=== PATIENT | male | born 1965 | race African-American/Black ===

== ENCOUNTER 2021-03-29 08:14 | Inpatient (IN) | payer BC ==
[2021-03-29] MEDS ORDERED: NITROGLYCERIN 25MG/D5W 250ML 25 MG/250 ML ML IVPB SCH (09:30)
[2021-03-29] MEDS ORDERED: NITROGLYCERIN 50MG/D5W 250ML 50 MG/250 ML ML IVPB SCH (09:45)
[2021-03-29 09:56] LABS: BASO % 1.2 % (0-2.0); HEMATOCRIT 37.4 % (35.4-49); HEMOGLOBIN 11.9 GM/dL (11.7-16.9); LYMPH % 17.1 % (8-40); MCH 24.5 pg (25.7-33.7); MCHC 31.7 g/dl (32.0-35.9); MEAN CELL VOLUME 77.3 fl (80-96); MEAN PLT VOLUME 9.1 fl (7.5-11.1); MONO % 6.7 % (3.8-10.2); PLATELET COUNT 375 10^3/uL (134-434); RBC 4.84 M/mm3 (4.00-5.60); RDW 18.4 % (11.9-15.9); WHITE BLOOD COUNT 10.1 K/mm3 (4.0-10.0)
[2021-03-29 10:13] LABS: ACTIVATED PTT 32.4 SECONDS (25.2-36.5); INR 1.28 (0.83-1.09); PROTHROMBIN TIME (PATIENT) 14.7 SEC (9.7-13.0)
[2021-03-29 10:24] LABS: CHLORIDE 107 mmol/L (98-107); SODIUM 138 mmol/L (136-145)
[2021-03-29 10:26] LABS: ALBUMIN 3.1 g/dl (3.4-5.0); ANION GAP 8 MMOL/L (8-16); CALCIUM 8.6 mg/dL (8.5-10.1); CO2 23 mmol/L (21-32); GLUCOSE,RANDOM 151 mg/dL (74-106)
[2021-03-29 10:27] LABS: BLOOD UREA NITROGEN 20.2 mg/dL (7-18)
[2021-03-29 10:29] LABS: SGPT/ALT 16 U/L (13-61)
[2021-03-29 10:30] LABS: CREATININE 1.7 mg/dL (0.55-1.3); SGOT/AST 31 U/L (15-37)
[2021-03-29 10:31] LABS: BILIRUBIN,TOTAL 0.7 mg/dL (0.2-1); TOT PROT 7.4 g/dl (6.4-8.2)
[2021-03-29 10:32] LABS: ALK PHOS 88 U/L (45-117)
[2021-03-29 10:35] LABS: N-TERMINAL BNP 4408.7 pg/ml (5-125)
[2021-03-29] MEDS ORDERED: FUROSEMIDE 40 MG/4 ML INJECTABLE VIAL IVPUSH ONE (11:07)
[2021-03-29] MEDS ORDERED: FUROSEMIDE 40 MG/4 ML INJECTABLE VIAL ONE (11:52)
[2021-03-29] MEDS ORDERED: AMIODARONE HCL 200 MG TABLET ONE (14:11)
[2021-03-29] MEDS: AMIODARONE HCL 200 MG TABLET PO SCH (14:17)
[2021-03-29 14:46] LABS: ALLENS TEST POSITIVE; ARTERIAL BLD GAS O2 SATURATION 98.2 % (95-98); ARTERIAL BLOOD GAS BASE EXCESS -0.4 mmol/L (-2-2); ARTERIAL BLOOD GAS PO2 106.2 mmHg (80-100); ARTERIAL BLOOD GAS pH 7.465 (7.350-7.450)
[2021-03-29 14:47] LABS: VENT MODE S/T; VENT RATE 10
[2021-03-29] MEDS ORDERED: metoPROLOL SUCCINATE 25 MG TAB.SR.24H (FP) PO ONE (15:09)
[2021-03-29 15:26] VITALS: BMI 32.9
[2021-03-29 20:25] LABS: EPI CELLS 1 /uL (0-25.1); HYALINE CASTS 0 /uL (0-3.1); URINE APPEARANCE CLEAR; URINE BACTERIA 1 /uL (0-1359); URINE BILIRUBIN NEGATIVE (NEGATIVE); URINE COLOR YELLOW; URINE GLUCOSE (UA) NEGATIVE (NEGATIVE); URINE KETONE NEGATIVE (NEGATIVE); URINE LEUK ESTERASE NEGATIVE (NEGATIVE); URINE NITRITE NEGATIVE (NEGATIVE); URINE PROTEIN 1+ (NEGATIVE); URINE RBC 3 /uL (0-23.9); URINE WBC 1 /uL (0-25.8)
[2021-03-29] MEDS: APIXABAN 5 MG TABLET PO SCH (21:15)
[2021-03-30 06:46] LABS: BASO % 0.2 % (0-2.0); EOS % 2.5 % (0-4.5); HEMATOCRIT 35.4 % (35.4-49); HEMOGLOBIN 10.9 GM/dL (11.7-16.9); LYMPH % 15.3 % (8-40); MCH 24.3 pg (25.7-33.7); MCHC 30.8 g/dl (32.0-35.9); MEAN CELL VOLUME 78.8 fl (80-96); MEAN PLT VOLUME 8.6 fl (7.5-11.1); MONO % 7.6 % (3.8-10.2); NEUT % 74.4 % (42.8-82.8); PLATELET COUNT 373 10^3/uL (134-434); RBC 4.49 M/mm3 (4.00-5.60); RDW 18.8 % (11.9-15.9); WHITE BLOOD COUNT 8.4 K/mm3 (4.0-10.0)
[2021-03-30 07:07] LABS: CALCIUM 8.6 mg/dL (8.5-10.1)
[2021-03-30 07:08] LABS: MAGNESIUM 2.1 mg/dL (1.8-2.4)
[2021-03-30 07:09] LABS: CREATININE 1.7 mg/dL (0.55-1.3)
[2021-03-30 07:10] LABS: ALBUMIN 2.9 g/dl (3.4-5.0); TOT PROT 6.5 g/dl (6.4-8.2)
[2021-03-30 07:13] LABS: PHOSPHOROUS 3.8 mg/dL (2.5-4.9)
[2021-03-30 07:15] LABS: BILIRUBIN,TOTAL 0.8 mg/dL (0.2-1)
[2021-03-30] MEDS: APIXABAN 5 MG TABLET PO SCH ×2 (09:19→21:02)
[2021-03-30] MEDS: AMIODARONE HCL 200 MG TABLET PO SCH (09:20)
[2021-03-30] MEDS ORDERED: FUROSEMIDE 40 MG/4 ML INJECTABLE VIAL IVPUSH SCH (10:00)
[2021-03-31 06:25] LABS: BASO % 0.8 % (0-2.0); EOS % 2.4 % (0-4.5); HEMATOCRIT 35.3 % (35.4-49); LYMPH % 15.9 % (8-40); MCH 24.4 pg (25.7-33.7); MCHC 31.3 g/dl (32.0-35.9); MEAN CELL VOLUME 77.9 fl (80-96); MONO % 5.7 % (3.8-10.2); NEUT % 75.2 % (42.8-82.8); PLATELET COUNT 358 10^3/uL (134-434); RBC 4.53 M/mm3 (4.00-5.60); RDW 18.6 % (11.9-15.9); WHITE BLOOD COUNT 8.6 K/mm3 (4.0-10.0)
[2021-03-31 06:26] LABS: CALCIUM 8.5 mg/dL (8.5-10.1)
[2021-03-31 06:27] LABS: BLOOD UREA NITROGEN 25.9 mg/dL (7-18)
[2021-03-31 06:30] LABS: CREATININE 1.7 mg/dL (0.55-1.3)
[2021-03-31] MEDS ORDERED: TORSEMIDE 10 MG TABLET PO SCH (10:00)
[2021-03-31] MEDS: FUROSEMIDE 40 MG/4 ML INJECTABLE VIAL IVPUSH SCH ×2 (10:17→13:28)
[2021-03-31] MEDS: APIXABAN 5 MG TABLET PO SCH ×2 (10:18→21:02)
[2021-03-31] MEDS: AMIODARONE HCL 200 MG TABLET PO SCH (10:18)
[2021-03-31] MEDS: POTASSIUM CHLORIDE TABS 20 MEQ TABLET.ER (FP) PO SCH (13:27)
[2021-04-01] MEDS: FUROSEMIDE 40 MG/4 ML INJECTABLE VIAL IVPUSH SCH ×2 (05:13→13:57)
[2021-04-01 08:21] LABS: BASO % 0.8 % (0-2.0); EOS % 2.1 % (0-4.5); HEMATOCRIT 35.6 % (35.4-49); HEMOGLOBIN 11.2 GM/dL (11.7-16.9); LYMPH % 13.5 % (8-40); MCH 24.8 pg (25.7-33.7); MCHC 31.6 g/dl (32.0-35.9); MEAN CELL VOLUME 78.5 fl (80-96); MEAN PLT VOLUME 8.9 fl (7.5-11.1); MONO % 5.7 % (3.8-10.2); NEUT % 77.9 % (42.8-82.8); PLATELET COUNT 368 10^3/uL (134-434); RBC 4.54 M/mm3 (4.00-5.60); RDW 18.8 % (11.9-15.9); WHITE BLOOD COUNT 8.6 K/mm3 (4.0-10.0)
[2021-04-01 08:39] LABS: ALBUMIN 3.1 g/dl (3.4-5.0); BLOOD UREA NITROGEN 23.6 mg/dL (7-18); CALCIUM 8.7 mg/dL (8.5-10.1)
[2021-04-01 08:42] LABS: CREATININE 1.8 mg/dL (0.55-1.3)
[2021-04-01 08:43] LABS: BILIRUBIN,TOTAL 0.9 mg/dL (0.2-1); TOT PROT 7.2 g/dl (6.4-8.2)
[2021-04-01] MEDS: POTASSIUM CHLORIDE TABS 20 MEQ TABLET.ER (FP) PO SCH (10:16)
[2021-04-01] MEDS: AMIODARONE HCL 200 MG TABLET PO SCH (10:17)
[2021-04-01] MEDS: APIXABAN 5 MG TABLET PO SCH ×2 (10:17→21:04)
[2021-04-02] MEDS: FUROSEMIDE 40 MG/4 ML INJECTABLE VIAL IVPUSH SCH (05:34)
[2021-04-02 07:31] LABS: CALCIUM 8.7 mg/dL (8.5-10.1)
[2021-04-02 07:32] LABS: MAGNESIUM 1.9 mg/dL (1.8-2.4)
[2021-04-02 07:35] LABS: CREATININE 1.8 mg/dL (0.55-1.3)
[2021-04-02] MEDS: APIXABAN 5 MG TABLET PO SCH (09:48)
[2021-04-02] MEDS: POTASSIUM CHLORIDE TABS 20 MEQ TABLET.ER (FP) PO SCH (09:48)
[2021-04-02] MEDS: AMIODARONE HCL 200 MG TABLET PO SCH (09:48)
[2021-04-02 10:30] VITALS: PULSE 84
[2021-04-02 11:30] VITALS: BP 122/76; TEMP 98.5
[2021-04-03] MEDS ORDERED: TORSEMIDE 10 MG TABLET PO SCH (10:00)
== END 2021-04-02 15:29 | disposition home or self-care (01) | DRG 291 ==
LOC: JER 08:14 → JERBED 12:00 → J4W 14:40
PROVIDERS: ADMIT Internal Medicine
DX: I11.0 Hypertensive heart disease with heart failure (principal); I50.23 Acute on chronic systolic (congestive) heart failure; J96.01 Acute respiratory failure with hypoxia; I16.1 Hypertensive emergency; N17.9 Acute kidney failure, unspecified; E66.9 Obesity, unspecified; Z68.32 Body mass index [BMI] 32.0-32.9, adult; I48.0 Paroxysmal atrial fibrillation
CPT/HCPCS: 36415; 36600; 71045-TC-FY; 76775-TC; 80048; 80053; 80061; 81003; 82550; 82803; 83036; 83735; 83880; 84100; 84443; 84484; 85025; 85610; 85730; 86850; 86900; 86901; 87804; 93005; 93010; 93306-TC; 94010; 94660; 94761; 99291; C9803; U0003; U0005

== ENCOUNTER 2021-05-05 07:15 | Inpatient (IN) | payer BC ==
[2021-05-05 07:28] VITALS: BMI 33.0
[2021-05-05] MEDS ORDERED: NITROGLYCERIN 25MG/D5W 250ML 25 MG/250 ML ML IVPB SCH ×2 (07:45→08:30)
[2021-05-05] MEDS ORDERED: FUROSEMIDE 40 MG/4 ML INJECTABLE VIAL IVPUSH ONE ×2 (07:53→10:13)
[2021-05-05] MEDS ORDERED: FUROSEMIDE 40 MG/4 ML INJECTABLE VIAL ONE ×3 (08:07→14:09)
[2021-05-05 08:09] LABS: VENOUS BASE EXCESS 2.2 mmol/L (-2-2); VENOUS O2 SATURATION 27.4 % (70-80); VENOUS PCO2 45.3 mmHg (38-52); VENOUS PH 7.4 (7.310-7.410)
[2021-05-05 08:15] LABS: BASO % 1.2 % (0-2.0); EOS % 1.3 % (0-4.5); HEMATOCRIT 34.7 % (35.4-49); HEMOGLOBIN 11.3 GM/dL (11.7-16.9); LYMPH % 13.6 % (8-40); MCH 25.3 pg (25.7-33.7); MCHC 32.5 g/dl (32.0-35.9); MEAN CELL VOLUME 77.8 fl (80-96); MEAN PLT VOLUME 8.7 fl (7.5-11.1); MONO % 6.4 % (3.8-10.2); NEUT % 77.5 % (42.8-82.8); PLATELET COUNT 261 10^3/uL (134-434); RBC 4.46 M/mm3 (4.00-5.60); RDW 18.6 % (11.9-15.9); WHITE BLOOD COUNT 7.8 K/mm3 (4.0-10.0)
[2021-05-05 08:49] LABS: CHLORIDE 108 mmol/L (98-107); SODIUM 142 mmol/L (136-145)
[2021-05-05 08:53] LABS: CALCIUM 9.3 mg/dL (8.5-10.1)
[2021-05-05 08:54] LABS: ALBUMIN 3.7 g/dl (3.4-5.0); ANION GAP 7 MMOL/L (8-16); BLOOD UREA NITROGEN 21.1 mg/dL (7-18); CO2 27 mmol/L (21-32); GLUCOSE,RANDOM 179 mg/dL (74-106); MAGNESIUM 2.3 mg/dL (1.8-2.4)
[2021-05-05 08:57] LABS: CREATININE 1.8 mg/dL (0.55-1.3); PHOSPHOROUS 3.6 mg/dL (2.5-4.9); SGOT/AST 12 U/L (15-37); SGPT/ALT 24 U/L (13-61)
[2021-05-05 08:58] LABS: TOT PROT 7.2 g/dl (6.4-8.2)
[2021-05-05 08:59] LABS: BILIRUBIN,TOTAL 0.9 mg/dL (0.2-1)
[2021-05-05 09:00] LABS: ALK PHOS 81 U/L (45-117)
[2021-05-05] MEDS ORDERED: NITROGLYCERIN 25MG/D5W 250ML 25 MG/250 ML ML IVPB ONE (09:00)
[2021-05-05] MEDS ORDERED: HEPARIN NA (PORCINE) 5,000 UNITS/ML 1ML VIAL SQ SCH (14:00)
[2021-05-05] MEDS: FUROSEMIDE 40 MG/4 ML INJECTABLE VIAL IVPUSH SCH (14:12)
[2021-05-05 14:34] LABS: URINE APPEARANCE CLEAR; URINE BILIRUBIN NEGATIVE (NEGATIVE); URINE COLOR YELLOW; URINE GLUCOSE (UA) NEGATIVE (NEGATIVE); URINE KETONE NEGATIVE (NEGATIVE); URINE LEUK ESTERASE NEGATIVE (NEGATIVE); URINE NITRITE NEGATIVE (NEGATIVE); URINE PROTEIN NEGATIVE (NEGATIVE); URINE UROBILINOGEN 0.2 mg/dL (0.2-1.0)
[2021-05-05] MEDS: APIXABAN 5 MG TABLET PO SCH (22:21)
[2021-05-05] MEDS: AMIODARONE HCL 200 MG TABLET PO SCH (22:21)
[2021-05-05] MEDS: SACUBITRIL/VALSARTAN 24 MG-26 MG TABLET PO SCH (23:33)
[2021-05-06] MEDS: FUROSEMIDE 40 MG/4 ML INJECTABLE VIAL IVPUSH SCH ×2 (06:28→14:31)
[2021-05-06 07:26] LABS: BASO % 1.2 % (0-2.0); HEMATOCRIT 34.1 % (35.4-49); HEMOGLOBIN 11.1 GM/dL (11.7-16.9); LYMPH % 21.5 % (8-40); MCH 25.6 pg (25.7-33.7); MCHC 32.7 g/dl (32.0-35.9); MEAN CELL VOLUME 78.3 fl (80-96); MEAN PLT VOLUME 8.9 fl (7.5-11.1); MONO % 8.5 % (3.8-10.2); NEUT % 65.8 % (42.8-82.8); PLATELET COUNT 241 10^3/uL (134-434); RBC 4.36 M/mm3 (4.00-5.60); RDW 18.5 % (11.9-15.9); WHITE BLOOD COUNT 6.2 K/mm3 (4.0-10.0)
[2021-05-06 07:46] LABS: ALBUMIN 3.2 g/dl (3.4-5.0); CALCIUM 8.5 mg/dL (8.5-10.1)
[2021-05-06 07:47] LABS: BLOOD UREA NITROGEN 20.4 mg/dL (7-18)
[2021-05-06 07:49] LABS: CREATININE 1.9 mg/dL (0.55-1.3)
[2021-05-06 07:51] LABS: BILIRUBIN,TOTAL 0.8 mg/dL (0.2-1); TOT PROT 6.7 g/dl (6.4-8.2)
[2021-05-06] MEDS: APIXABAN 5 MG TABLET PO SCH ×2 (09:21→21:15)
[2021-05-06] MEDS: AMIODARONE HCL 200 MG TABLET PO SCH ×2 (09:21→21:15)
[2021-05-06] MEDS: SACUBITRIL/VALSARTAN 24 MG-26 MG TABLET PO SCH ×2 (09:22→21:16)
[2021-05-06 19:11] LABS: SARS-CoV-2 NAA Not Detected (Not Detected)
[2021-05-07] MEDS: FUROSEMIDE 40 MG/4 ML INJECTABLE VIAL IVPUSH SCH ×2 (06:03→13:57)
[2021-05-07 08:15] LABS: BASO % 1.2 % (0-2.0); EOS % 3.9 % (0-4.5); HEMATOCRIT 36.1 % (35.4-49); HEMOGLOBIN 11.5 GM/dL (11.7-16.9); LYMPH % 27.1 % (8-40); MCH 24.9 pg (25.7-33.7); MCHC 31.9 g/dl (32.0-35.9); MEAN CELL VOLUME 77.8 fl (80-96); MONO % 7.8 % (3.8-10.2); PLATELET COUNT 267 10^3/uL (134-434); RBC 4.64 M/mm3 (4.00-5.60); RDW 18.5 % (11.9-15.9); WHITE BLOOD COUNT 6.2 K/mm3 (4.0-10.0)
[2021-05-07 08:22] LABS: CALCIUM 8.5 mg/dL (8.5-10.1)
[2021-05-07 08:23] LABS: BLOOD UREA NITROGEN 22.1 mg/dL (7-18); MAGNESIUM 2.1 mg/dL (1.8-2.4)
[2021-05-07 08:26] LABS: CREATININE 1.8 mg/dL (0.55-1.3)
[2021-05-07] MEDS: AMIODARONE HCL 200 MG TABLET PO SCH (10:13)
[2021-05-07] MEDS: APIXABAN 5 MG TABLET PO SCH (10:13)
[2021-05-07] MEDS: SACUBITRIL/VALSARTAN 24 MG-26 MG TABLET PO SCH (10:14)
[2021-05-07] MEDS ORDERED: POTASSIUM CHLORIDE TABS 20 MEQ TABLET.ER (FP) PO SCH (10:15)
[2021-05-07 13:56] VITALS: BP 136/80; PULSE 74; TEMP 98.2
== END 2021-05-07 16:44 | disposition home or self-care (01) | DRG 291 ==
LOC: JER 07:15 → JERBED 07:58 → J4W 21:57
PROVIDERS: ATTEND Internal Medicine
DX: I13.0 Hypertensive heart and chronic kidney disease with heart failure and stage 1 through stage 4 chronic kidney disease, or unspecified chronic kidney disease (principal); I50.23 Acute on chronic systolic (congestive) heart failure; J96.01 Acute respiratory failure with hypoxia; N17.9 Acute kidney failure, unspecified; Z68.33 Body mass index [BMI] 33.0-33.9, adult; N18.9 Chronic kidney disease, unspecified; I48.0 Paroxysmal atrial fibrillation; I34.0 Nonrheumatic mitral (valve) insufficiency; E66.9 Obesity, unspecified
CPT/HCPCS: 36415; 71045-TC-FY; 80048; 80053; 81003; 82570; 82803; 83735; 83880; 84100; 84156; 84443; 84484; 85025; 86850; 86900; 86901; 93005; 93010; 94660; 99285-25; C9803; U0003; U0005

== ENCOUNTER 2022-03-19 20:06 | Inpatient (IN) | payer BC, OTHER ==
[2022-03-19] MEDS ORDERED: LACTATED RINGERS SOLUTION 1000 ML INFUS.BAG IV ONE (20:54)
[2022-03-19] MEDS ORDERED: ONDANSETRON 4 MG/2 ML VIAL IVPUSH ONE (20:54)
[2022-03-19] MEDS ORDERED: ACETAMINOPHEN 1000 MG/100 ML BAG IVPB ONE (20:54)
[2022-03-19] MEDS ORDERED: ACETAMINOPHEN INJECTION 100 ML IVPB ONE (21:03)
[2022-03-19] MEDS ORDERED: ONDANSETRON 4 MG/2 ML VIAL ONE (21:04)
[2022-03-19] MEDS ORDERED: FAMOTIDINE 20 MG/50 ML IVPB 20 MG/50 ML MG IVPB ONE ×2 (21:09→21:12)
[2022-03-19] MEDS ORDERED: SUCRALFATE 1 GM TABLET (FP) PO ONE (21:09)
[2022-03-19] MEDS ORDERED: MAG HYDROX/AL HYDROX/SIMETH -MYLANTA- ORAL SUSPENSION PO ONE (21:09)
[2022-03-19] MEDS ORDERED: SUCRALFATE 1 GM TABLET (FP) ONE (21:12)
[2022-03-19] MEDS ORDERED: MAG HYDROX/AL HYDROX/SIMETH 30 ML UNIT-DOSE CUP ONE (21:12)
[2022-03-19 21:27] LABS: BASO % 1.2 % (0-2.0); EOS % 0.2 % (0-4.5); HEMATOCRIT 56.7 % (35.4-49); HEMOGLOBIN 18.1 GM/dL (11.7-16.9); LYMPH % 6.4 % (8-40); MCH 28.8 pg (25.7-33.7); MCHC 31.8 g/dl (32.0-35.9); MEAN CELL VOLUME 90.4 fl (80-96); MEAN PLT VOLUME 9.8 fl (7.5-11.1); MONO % 5.5 % (3.8-10.2); NEUT % 86.7 % (42.8-82.8); PLATELET COUNT 311 10^3/uL (134-434); RBC 6.27 M/mm3 (4.00-5.60); RDW 15.3 % (11.9-15.9); WHITE BLOOD COUNT 8.1 K/mm3 (4.0-10.0)
[2022-03-19 21:47] LABS: CHLORIDE 81 mmol/L (98-107); SODIUM 123 mmol/L (136-145)
[2022-03-19 21:49] LABS: ALBUMIN 3.6 g/dl (3.4-5.0); ANION GAP 23 MMOL/L (8-16); CALCIUM 9.4 mg/dL (8.5-10.1); CO2 19 mmol/L (21-32)
[2022-03-19 21:50] LABS: LIPASE 1006 U/L (73-393)
[2022-03-19 21:53] LABS: CREATININE 3.4 mg/dL (0.55-1.3); SGOT/AST 13 U/L (15-37); SGPT/ALT 28 U/L (13-61)
[2022-03-19 21:54] LABS: BILIRUBIN,TOTAL 0.5 mg/dL (0.2-1); TOT PROT 7.8 g/dl (6.4-8.2)
[2022-03-19 21:55] LABS: ALK PHOS 119 U/L (45-117)
[2022-03-19 21:57] LABS: N-TERMINAL BNP 1514.2 pg/ml (5-125)
[2022-03-19 21:58] LABS: GLUCOSE,RANDOM 1261 mg/dL (74-106)
[2022-03-19] MEDS ORDERED: SODIUM CHLORIDE 0.9% 500 ML INFUS.BAG IV ONE ×2 (22:20→23:52)
[2022-03-19] MEDS ORDERED: HYDROmorphone HCL CARPU-JECT 2 MG/1 ML DISP.SYRIN IVPUSH ONE ×2 (22:23→23:42)
[2022-03-19] MEDS ORDERED: CALCIUM GLUCONATE 10% - 1,000 MG/10 ML VIAL IVPB ONE (22:25)
[2022-03-19] MEDS ORDERED: INSULIN REGULAR HUMAN 100 UNITS/ML *VIAL IVPUSH ONE (22:25)
[2022-03-19] MEDS ORDERED: INSULIN REGULAR 100 UNITS in SODIUM CHLORIDE 99 ML IVPB SCH (22:30)
[2022-03-19 22:36] LABS: INR 1.03 (0.83-1.09); PROTHROMBIN TIME (PATIENT) 11.9 SEC (9.7-13.0)
[2022-03-19 22:38] LABS: ACTIVATED PTT 25.1 SECONDS (25.2-36.5)
[2022-03-19] MEDS ORDERED: HYDROmorphone HCl 2 MG/ML VIAL ONE (22:38)
[2022-03-19] MEDS ORDERED: INSULIN REGULAR HUMAN 100 UNITS/ML *VIAL ONE (22:42)
[2022-03-19] MEDS ORDERED: CALCIUM GLUC IN NACL, ISO-OSM 1 GM/50 ML BAG IVPB ONE (22:42)
[2022-03-19 22:45] LABS: TRIGLYCERIDES 406 mg/dL (0-150)
[2022-03-19 22:46] LABS: VENOUS BASE EXCESS -6.9 mmol/L (-2-2); VENOUS O2 SATURATION 63.7 % (70-80); VENOUS PCO2 38.7 mmHg (38-52); VENOUS PH 7.304 (7.310-7.410)
[2022-03-19 22:47] LABS: URINE APPEARANCE CLEAR; URINE BILIRUBIN NEGATIVE (NEGATIVE); URINE COLOR YELLOW; URINE GLUCOSE (UA) 3+ (NEGATIVE); URINE KETONE TRACE (NEGATIVE); URINE LEUK ESTERASE NEGATIVE (NEGATIVE); URINE NITRITE NEGATIVE (NEGATIVE); URINE PROTEIN NEGATIVE (NEGATIVE); URINE UROBILINOGEN 0.2 mg/dL (0.2-1.0)
[2022-03-19] MEDS ORDERED: CALCIUM GLUCONATE 10% - 1,000 MG/10 ML VIAL ONE (22:51)
[2022-03-19 23:48] LABS: LACTIC ACID 4.6 mmol/L (0.4-2.0)
[2022-03-20 01:48] LABS: CHLORIDE 86 mmol/L (98-107); SODIUM 128 mmol/L (136-145)
[2022-03-20 01:50] LABS: BLOOD UREA NITROGEN 47.7 mg/dL (7-18); CALCIUM 9.5 mg/dL (8.5-10.1); CO2 22 mmol/L (21-32)
[2022-03-20 01:55] LABS: LACTIC ACID 3.4 mmol/L (0.4-2.0)
[2022-03-20 02:00] LABS: ANION GAP 20 MMOL/L (8-16); GLUCOSE,RANDOM 1073 mg/dL (74-106)
[2022-03-20] MEDS ORDERED: LACTATED RINGERS SOLUTION 1,000 ML/1,000 ML INFUS.BAG IV SCH ×2 (03:30→13:27)
[2022-03-20] MEDS: HYDROmorphone HCl 2 MG/ML VIAL IVPUSH PRN ×5 (04:39→20:10)
[2022-03-20] MEDS: ONDANSETRON 4 MG/2 ML VIAL IVPUSH PRN (06:45)
[2022-03-20 07:31] LABS: HEMATOCRIT 51.2 % (35.4-49); HEMOGLOBIN 16.9 GM/dL (11.7-16.9); MCH 28.6 pg (25.7-33.7); MEAN CELL VOLUME 86.8 fl (80-96); MEAN PLT VOLUME 9.9 fl (7.5-11.1); PLATELET COUNT 287 10^3/uL (134-434); RBC 5.89 M/mm3 (4.00-5.60); RDW 15.3 % (11.9-15.9)
[2022-03-20 07:58] LABS: CHLORIDE 100 mmol/L (98-107); SODIUM 139 mmol/L (136-145)
[2022-03-20 08:06] LABS: ANION GAP 15 MMOL/L (8-16); CALCIUM 9.4 mg/dL (8.5-10.1); CO2 23 mmol/L (21-32); MAGNESIUM 3.1 mg/dL (1.8-2.4)
[2022-03-20 08:07] LABS: ALBUMIN 3.5 g/dl (3.4-5.0)
[2022-03-20 08:09] LABS: CREATININE 2.8 mg/dL (0.55-1.3); PHOSPHOROUS 5.5 mg/dL (2.5-4.9); SGPT/ALT 27 U/L (13-61)
[2022-03-20 08:10] LABS: SGOT/AST 12 U/L (15-37)
[2022-03-20 08:11] LABS: BILIRUBIN,TOTAL 0.3 mg/dL (0.2-1); TOT PROT 7.2 g/dl (6.4-8.2)
[2022-03-20 08:12] LABS: ALK PHOS 105 U/L (45-117)
[2022-03-20 08:22] LABS: GLUCOSE,RANDOM 477 mg/dL (74-106)
[2022-03-20] MEDS: PANTOPRAZOLE SODIUM 40 MG VIAL IVPUSH SCH (10:08)
[2022-03-20 12:26] LABS: LIPASE 4960 U/L (73-393)
[2022-03-20] MEDS ORDERED: LACTATED RINGERS SOLUTION 1,000 ML with POTASSIUM CHLORIDE 20 MEQ IV ONE ×2 (12:31→12:32)
[2022-03-20] MEDS: KCL 10 MEQ IVPB 10 MEQ/100 ML INFUS.BAG IVPB SCH ×3 (13:12→15:21)
[2022-03-20] MEDS ORDERED: INSULIN (LEVEMIR) 100 UNITS/ML UNITS SQ ONE (13:25)
[2022-03-20] MEDS: HEPARIN NA (PORCINE) 5,000 UNITS/ML 1ML VIAL SQ SCH ×2 (13:32→21:50)
[2022-03-20 13:55] LABS: CALCIUM 9.8 mg/dL (8.5-10.1)
[2022-03-20 13:56] LABS: ALBUMIN 3.4 g/dl (3.4-5.0)
[2022-03-20 13:59] LABS: CREATININE 2.6 mg/dL (0.55-1.3)
[2022-03-20 14:00] LABS: BILIRUBIN,TOTAL 0.3 mg/dL (0.2-1); TOT PROT 7.1 g/dl (6.4-8.2)
[2022-03-20 15:42] LABS: CALCIUM 9.1 mg/dL (8.5-10.1)
[2022-03-20 15:43] LABS: BLOOD UREA NITROGEN 42.2 mg/dL (7-18)
[2022-03-20 15:46] LABS: CREATININE 2.4 mg/dL (0.55-1.3)
[2022-03-20] MEDS: INSULIN SLIDING SCALE (NOVOLOG) 1 VIAL SQ SCH (16:12)
[2022-03-20] MEDS ORDERED: INSULIN SLIDING SCALE (NOVOLOG) 1 VIAL SQ SCH (16:30)
[2022-03-20] MEDS: AMIODARONE HCL 200 MG TABLET PO SCH ×2 (21:51→22:12)
[2022-03-20] MEDS ORDERED: INSULIN (LEVEMIR) 100 UNITS/ML UNITS SQ SCH (22:00)
[2022-03-21] MEDS: ONDANSETRON 4 MG/2 ML VIAL IVPUSH PRN (01:10)
[2022-03-21] MEDS: HYDROmorphone HCl 2 MG/ML VIAL IVPUSH PRN ×4 (01:10→22:50)
[2022-03-21] MEDS: INSULIN SLIDING SCALE (NOVOLOG) 1 VIAL SQ SCH ×2 (06:32→10:52)
[2022-03-21] MEDS: HEPARIN NA (PORCINE) 5,000 UNITS/ML 1ML VIAL SQ SCH ×3 (06:32→21:16)
[2022-03-21 07:08] LABS: ARTERIAL BLD GAS O2 SATURATION 96.6 % (95-98); ARTERIAL BLOOD GAS BASE EXCESS -6.4 mmol/L (-2-2); ARTERIAL BLOOD GAS pH 7.322 (7.350-7.450)
[2022-03-21 07:13] LABS: MCH 28.4 pg (25.7-33.7); MCHC 32.1 g/dl (32.0-35.9); MEAN CELL VOLUME 88.7 fl (80-96); MEAN PLT VOLUME 8.8 fl (7.5-11.1); PLATELET COUNT 130 10^3/uL (134-434); RBC 6.31 M/mm3 (4.00-5.60); RDW 15.4 % (11.9-15.9); WHITE BLOOD COUNT 12.4 K/mm3 (4.0-10.0)
[2022-03-21] MEDS: INSULIN (LEVEMIR) 100 UNITS/ML UNITS SQ SCH ×2 (07:24→10:54)
[2022-03-21 07:32] LABS: CHLORIDE 102 mmol/L (98-107); SODIUM 140 mmol/L (136-145)
[2022-03-21 07:34] LABS: CO2 23 mmol/L (21-32)
[2022-03-21 07:35] LABS: ALBUMIN 3.2 g/dl (3.4-5.0); BLOOD UREA NITROGEN 50.4 mg/dL (7-18); CALCIUM 8.8 mg/dL (8.5-10.1)
[2022-03-21 07:37] LABS: SGPT/ALT 26 U/L (13-61)
[2022-03-21 07:38] LABS: CREATININE 2.9 mg/dL (0.55-1.3); SGOT/AST 21 U/L (15-37)
[2022-03-21 07:39] LABS: PHOSPHOROUS 5.3 mg/dL (2.5-4.9); TOT PROT 6.8 g/dl (6.4-8.2); TRIGLYCERIDES 261 mg/dL (0-150)
[2022-03-21 07:40] LABS: BILIRUBIN,TOTAL 0.7 mg/dL (0.2-1)
[2022-03-21 07:41] LABS: LACTIC ACID 2.6 mmol/L (0.4-2.0)
[2022-03-21 07:42] LABS: ALK PHOS 100 U/L (45-117)
[2022-03-21 07:54] LABS: ANION GAP 16 MMOL/L (8-16); GLUCOSE,RANDOM 438 mg/dL (74-106); LIPASE 5653 U/L (73-393)
[2022-03-21] MEDS ORDERED: SODIUM ZIRCONIUM CYCLOSILICATE (LOKELMA) 5 GM PACKET PO ONE (08:02)
[2022-03-21] MEDS: PANTOPRAZOLE SODIUM 40 MG VIAL IVPUSH SCH (09:10)
[2022-03-21 09:12] LABS: ANISOCYTOSIS 3+; MACROCYTOSIS 0; OVALOCYTE 1+; TEAR DROP CELLS 1+
[2022-03-21] MEDS ORDERED: ALBUTEROL SO4 0.5 % INH SOLN 2.5 MG/0.5 ML VIAL.NEB. NEB ONE (10:03)
[2022-03-21] MEDS ORDERED: CALCIUM GLUCONATE 10% - 1,000 MG/10 ML VIAL IVPB ONE (10:04)
[2022-03-21] MEDS ORDERED: INSULIN REGULAR HUMAN 100 UNITS/ML *VIAL IVPUSH ONE (10:28)
[2022-03-21] MEDS ORDERED: DEXTROSE 50%-WATER - 25 GM/50 ML VIAL IVPUSH ONE (10:28)
[2022-03-21] MEDS ORDERED: SODIUM BICARBONATE 8.4% 50 MEQ/50 ML VIAL IVPUSH ONE (10:45)
[2022-03-21] MEDS ORDERED: SODIUM BICARBONATE 8.4% 50 MEQ/50 ML VIAL ONE (11:05)
[2022-03-21] MEDS ORDERED: SODIUM CHLORIDE 1,000 ML IV SCH (11:45)
[2022-03-21 12:25] LABS: BLOOD UREA NITROGEN 52.6 mg/dL (7-18)
[2022-03-21] MEDS ORDERED: INSULIN (NOVOLOG) ASPART 100 UNITS/ML 10ML VIAL SQ ONE ×2 (13:00→14:22)
[2022-03-21] MEDS ORDERED: INSULIN REGULAR 100 UNITS in SODIUM CHLORIDE 99 ML IVPB SCH (15:00)
[2022-03-21] MEDS ORDERED: SODIUM CHLORIDE 0.45% 1,000 ML IV SCH ×2 (15:15→17:15)
[2022-03-21 19:11] LABS: CALCIUM 8.7 mg/dL (8.5-10.1)
[2022-03-21 19:14] LABS: CREATININE 2.8 mg/dL (0.55-1.3)
[2022-03-22 01:13] LABS: CALCIUM 8.3 mg/dL (8.5-10.1)
[2022-03-22 01:14] LABS: BLOOD UREA NITROGEN 52.9 mg/dL (7-18); MAGNESIUM 3.1 mg/dL (1.8-2.4)
[2022-03-22 01:18] LABS: CREATININE 2.8 mg/dL (0.55-1.3)
[2022-03-22] MEDS: HEPARIN NA (PORCINE) 5,000 UNITS/ML 1ML VIAL SQ SCH ×3 (06:03→21:21)
[2022-03-22 07:26] LABS: HEMATOCRIT 51.9 % (35.4-49); HEMOGLOBIN 17.1 GM/dL (11.7-16.9); MCH 29.2 pg (25.7-33.7); MCHC 32.8 g/dl (32.0-35.9); MEAN CELL VOLUME 88.8 fl (80-96); MEAN PLT VOLUME 9.7 fl (7.5-11.1); PLATELET COUNT 116 10^3/uL (134-434); RBC 5.85 M/mm3 (4.00-5.60); RDW 15.6 % (11.9-15.9); WHITE BLOOD COUNT 9.5 K/mm3 (4.0-10.0)
[2022-03-22 07:49] LABS: CALCIUM 8.3 mg/dL (8.5-10.1)
[2022-03-22 07:50] LABS: BLOOD UREA NITROGEN 50.4 mg/dL (7-18)
[2022-03-22 07:52] LABS: CREATININE 2.9 mg/dL (0.55-1.3)
[2022-03-22 07:53] LABS: BILIRUBIN,TOTAL 0.8 mg/dL (0.2-1)
[2022-03-22 07:54] LABS: TOT PROT 6.3 g/dl (6.4-8.2)
[2022-03-22 08:00] LABS: LACTIC ACID 2.3 mmol/L (0.4-2.0)
[2022-03-22 08:01] LABS: ALBUMIN 2.6 g/dl (3.4-5.0)
[2022-03-22] MEDS ORDERED: DEXTROSE 5%-0.45% SALINE 1,000 ML IV SCH (08:15)
[2022-03-22] MEDS: PANTOPRAZOLE SODIUM 40 MG VIAL IVPUSH SCH (09:24)
[2022-03-22 10:07] LABS: ANISOCYTOSIS 3+; MACROCYTOSIS 0; OVALOCYTE 1+; TEAR DROP CELLS 1+
[2022-03-22] MEDS: HYDROmorphone HCl 2 MG/ML VIAL IVPUSH PRN ×3 (10:38→21:34)
[2022-03-22] MEDS ORDERED: INSULIN (LEVEMIR) 100 UNITS/ML UNITS SQ ONE (10:49)
[2022-03-22] MEDS ORDERED: INSULIN (NOVOLOG) ASPART 100 UNITS/ML 10ML VIAL SQ SCH (11:00)
[2022-03-22] MEDS: INSULIN SLIDING SCALE (NOVOLOG) 1 VIAL SQ SCH ×3 (12:31→21:20)
[2022-03-22] MEDS: DOCUSATE SODIUM 100 MG CAPSULE (FP) PO SCH ×2 (15:32→21:21)
[2022-03-22] MEDS: POLYETHYLENE GLYCOL (HEALTHYLAX) 3350 17 GM PACKET PO SCH (22:13)
[2022-03-22] MEDS ORDERED: HYDROmorphone HCl 2 MG/ML VIAL IVPUSH PRN (23:34)
[2022-03-22] MEDS ORDERED: ONDANSETRON 4 MG/2 ML VIAL IVPUSH PRN (23:34)
[2022-03-23] MEDS: INSULIN (NOVOLOG) ASPART 100 UNITS/ML 10ML VIAL SQ SCH ×3 (06:51→17:09)
[2022-03-23] MEDS: DOCUSATE SODIUM 100 MG CAPSULE (FP) PO SCH ×3 (06:51→21:19)
[2022-03-23] MEDS: HEPARIN NA (PORCINE) 5,000 UNITS/ML 1ML VIAL SQ SCH ×3 (06:51→21:20)
[2022-03-23] MEDS: INSULIN (LEVEMIR) 100 UNITS/ML UNITS SQ SCH ×2 (06:52→21:26)
[2022-03-23] MEDS: INSULIN SLIDING SCALE (NOVOLOG) 1 VIAL SQ SCH ×4 (06:59→21:25)
[2022-03-23] MEDS ORDERED: INSULIN (NOVOLOG) ASPART 100 UNITS/ML 10ML VIAL SQ SCH (07:00)
[2022-03-23] MEDS ORDERED: INSULIN SLIDING SCALE (NOVOLOG) 1 VIAL SQ SCH (07:00)
[2022-03-23] MEDS ORDERED: HYDROmorphone HCl 2 MG/ML VIAL IVPB PRN (09:16)
[2022-03-23] MEDS: VALSARTAN 40 MG TABLET PO SCH (09:41)
[2022-03-23] MEDS: SPIRONOLACTONE 25 MG TABLET PO SCH (09:42)
[2022-03-23] MEDS: TORSEMIDE 20 MG TABLET (FP) PO SCH (09:42)
[2022-03-23] MEDS: POLYETHYLENE GLYCOL (HEALTHYLAX) 3350 17 GM PACKET PO SCH ×2 (09:42→21:19)
[2022-03-23] MEDS: PANTOPRAZOLE SODIUM 40 MG VIAL IVPUSH SCH (09:42)
[2022-03-23] MEDS ORDERED: TORSEMIDE 20 MG TABLET (FP) PO SCH (10:00)
[2022-03-23] MEDS ORDERED: VALSARTAN 40 MG TABLET PO SCH (10:00)
[2022-03-23] MEDS ORDERED: SPIRONOLACTONE 25 MG TABLET PO SCH (10:00)
[2022-03-23] MEDS: HYDROmorphone HCl 2 MG/ML VIAL IVPB PRN (13:19)
[2022-03-23] MEDS ORDERED: SODIUM CHLORIDE 1,000 ML IV SCH (17:30)
[2022-03-23] MEDS: ACETAMINOPHEN 325 MG TABLET (FP) PO PRN (18:34)
[2022-03-23 20:05] LABS: HEPATITIS B SURFACE AG MATERN NON-REACTIVE (NONREACTIVE)
[2022-03-24] MEDS: HYDROmorphone HCl 2 MG/ML VIAL IVPB PRN ×2 (01:48→06:47)
[2022-03-24] MEDS: DOCUSATE SODIUM 100 MG CAPSULE (FP) PO SCH ×3 (06:21→21:46)
[2022-03-24] MEDS: HEPARIN NA (PORCINE) 5,000 UNITS/ML 1ML VIAL SQ SCH ×3 (06:21→21:47)
[2022-03-24] MEDS: INSULIN SLIDING SCALE (NOVOLOG) 1 VIAL SQ SCH ×4 (06:26→21:52)
[2022-03-24] MEDS: INSULIN (LEVEMIR) 100 UNITS/ML UNITS SQ SCH ×2 (06:27→21:53)
[2022-03-24] MEDS: INSULIN (NOVOLOG) ASPART 100 UNITS/ML 10ML VIAL SQ SCH ×3 (06:28→16:02)
[2022-03-24] MEDS: PANTOPRAZOLE SODIUM 40 MG VIAL IVPUSH SCH (09:14)
[2022-03-24] MEDS: SPIRONOLACTONE 25 MG TABLET PO SCH (09:14)
[2022-03-24] MEDS: VALSARTAN 40 MG TABLET PO SCH (09:14)
[2022-03-24] MEDS: TORSEMIDE 20 MG TABLET (FP) PO SCH (09:14)
[2022-03-24] MEDS: POLYETHYLENE GLYCOL (HEALTHYLAX) 3350 17 GM PACKET PO SCH ×2 (09:14→21:47)
[2022-03-24] MEDS: ACETAMINOPHEN 325 MG TABLET (FP) PO PRN (09:16)
[2022-03-24 10:33] LABS: HEMATOCRIT 40.3 % (35.4-49); MCH 28.7 pg (25.7-33.7); MCHC 32.3 g/dl (32.0-35.9); MEAN CELL VOLUME 88.7 fl (80-96); MEAN PLT VOLUME 10.1 fl (7.5-11.1); PLATELET COUNT 149 10^3/uL (134-434); RBC 4.54 M/mm3 (4.00-5.60); RDW 15.4 % (11.9-15.9); WHITE BLOOD COUNT 12.2 K/mm3 (4.0-10.0)
[2022-03-24 10:54] LABS: CALCIUM 7.8 mg/dL (8.5-10.1)
[2022-03-24 10:55] LABS: MAGNESIUM 2.6 mg/dL (1.8-2.4)
[2022-03-24 10:56] LABS: ALBUMIN 2.2 g/dl (3.4-5.0)
[2022-03-24 10:57] LABS: BLOOD UREA NITROGEN 33.7 mg/dL (7-18); CREATININE 1.8 mg/dL (0.55-1.3)
[2022-03-24 10:59] LABS: TOT PROT 5.6 g/dl (6.4-8.2)
[2022-03-24 11:00] LABS: BILIRUBIN,TOTAL 1.9 mg/dL (0.2-1)
[2022-03-24 12:10] LABS: ANISOCYTOSIS 0; HELMET CELLS 0; HOWELL-JOLLY BODIES 0; MACROCYTOSIS 0; OVALOCYTE 0; ROULEAU 0; SICKELED CELLS 0; TARGET CELLS 0; TEAR DROP CELLS 0; TOXIC GRANULATION 0
[2022-03-24] MEDS: oxyCODONE HCL 5 MG TABLET PO PRN (16:04)
[2022-03-25] MEDS: oxyCODONE HCL 5 MG TABLET PO PRN ×3 (04:56→22:43)
[2022-03-25] MEDS: HEPARIN NA (PORCINE) 5,000 UNITS/ML 1ML VIAL SQ SCH ×3 (06:21→22:27)
[2022-03-25] MEDS: DOCUSATE SODIUM 100 MG CAPSULE (FP) PO SCH ×3 (06:21→22:27)
[2022-03-25] MEDS: INSULIN (NOVOLOG) ASPART 100 UNITS/ML 10ML VIAL SQ SCH ×3 (06:28→16:57)
[2022-03-25] MEDS: INSULIN SLIDING SCALE (NOVOLOG) 1 VIAL SQ SCH ×4 (06:28→22:28)
[2022-03-25] MEDS: INSULIN (LEVEMIR) 100 UNITS/ML UNITS SQ SCH ×2 (06:29→22:27)
[2022-03-25] MEDS: VALSARTAN 40 MG TABLET PO SCH (09:35)
[2022-03-25] MEDS: TORSEMIDE 20 MG TABLET (FP) PO SCH (09:36)
[2022-03-25] MEDS: PANTOPRAZOLE 40 MG TABLET PO SCH (09:36)
[2022-03-25] MEDS: POLYETHYLENE GLYCOL (HEALTHYLAX) 3350 17 GM PACKET PO SCH ×2 (09:36→22:27)
[2022-03-25] MEDS: SPIRONOLACTONE 25 MG TABLET PO SCH (09:36)
[2022-03-25] MEDS ORDERED: LACTATED RINGERS SOLUTION 1,000 ML/1,000 ML INFUS.BAG IV SCH (13:15)
[2022-03-25 13:48] LABS: HEMATOCRIT 38.4 % (35.4-49); HEMOGLOBIN 12.4 GM/dL (11.7-16.9); MCH 28.7 pg (25.7-33.7); MCHC 32.3 g/dl (32.0-35.9); MEAN CELL VOLUME 88.9 fl (80-96); MEAN PLT VOLUME 9.7 fl (7.5-11.1); PLATELET COUNT 182 10^3/uL (134-434); RBC 4.32 M/mm3 (4.00-5.60); RDW 15.6 % (11.9-15.9); WHITE BLOOD COUNT 14.2 K/mm3 (4.0-10.0)
[2022-03-25 13:56] LABS: BLOOD UREA NITROGEN 29.7 mg/dL (7-18); CALCIUM 8.4 mg/dL (8.5-10.1)
[2022-03-25 13:57] LABS: ALBUMIN 2.2 g/dl (3.4-5.0); MAGNESIUM 2.2 mg/dL (1.8-2.4)
[2022-03-25 13:59] LABS: CREATININE 1.7 mg/dL (0.55-1.3)
[2022-03-25 14:01] LABS: BILIRUBIN,TOTAL 1.7 mg/dL (0.2-1)
[2022-03-25 14:15] LABS: ANISOCYTOSIS 1+; MACROCYTOSIS 0; PLATELET ESTIMATE INCREASED
[2022-03-25] MEDS ORDERED: INSULIN (NOVOLOG) ASPART 100 UNITS/ML 10ML VIAL SQ ONE (16:49)
[2022-03-25] MEDS: LACTATED RINGERS SOLUTION 1,000 ML/1,000 ML INFUS.BAG IV SCH (16:49)
[2022-03-26] MEDS: HEPARIN NA (PORCINE) 5,000 UNITS/ML 1ML VIAL SQ SCH ×3 (06:24→21:48)
[2022-03-26] MEDS: INSULIN (NOVOLOG) ASPART 100 UNITS/ML 10ML VIAL SQ SCH ×3 (06:25→17:13)
[2022-03-26] MEDS: INSULIN (LEVEMIR) 100 UNITS/ML UNITS SQ SCH ×2 (06:25→21:50)
[2022-03-26] MEDS: DOCUSATE SODIUM 100 MG CAPSULE (FP) PO SCH ×3 (06:25→21:48)
[2022-03-26] MEDS: INSULIN SLIDING SCALE (NOVOLOG) 1 VIAL SQ SCH ×4 (06:26→21:54)
[2022-03-26] MEDS: SPIRONOLACTONE 25 MG TABLET PO SCH (09:51)
[2022-03-26] MEDS: TORSEMIDE 20 MG TABLET (FP) PO SCH (09:51)
[2022-03-26] MEDS: VALSARTAN 40 MG TABLET PO SCH (09:51)
[2022-03-26 09:52] LABS: HEMATOCRIT 38.2 % (35.4-49); HEMOGLOBIN 12.5 GM/dL (11.7-16.9); MCHC 32.8 g/dl (32.0-35.9); MEAN CELL VOLUME 88.4 fl (80-96); PLATELET COUNT 232 10^3/uL (134-434); RBC 4.32 M/mm3 (4.00-5.60); RDW 15.4 % (11.9-15.9); WHITE BLOOD COUNT 15.7 K/mm3 (4.0-10.0)
[2022-03-26] MEDS: PANTOPRAZOLE 40 MG TABLET PO SCH (09:54)
[2022-03-26] MEDS: POLYETHYLENE GLYCOL (HEALTHYLAX) 3350 17 GM PACKET PO SCH ×2 (09:54→21:49)
[2022-03-26 10:46] LABS: CREATININE 1.5 mg/dL (0.55-1.3); MAGNESIUM 2.1 mg/dL (1.8-2.4)
[2022-03-26 10:47] LABS: BLOOD UREA NITROGEN 23.3 mg/dL (7-18)
[2022-03-26 10:48] LABS: ALBUMIN 2.3 g/dl (3.4-5.0); CALCIUM 8.8 mg/dL (8.5-10.1); TOT PROT 6.2 g/dl (6.4-8.2)
[2022-03-26 10:52] LABS: BILIRUBIN,TOTAL 1.4 mg/dL (0.2-1)
[2022-03-26 10:56] LABS: ANISOCYTOSIS 1+; MACROCYTOSIS 0
[2022-03-26] MEDS: oxyCODONE HCL 5 MG TABLET PO PRN (13:16)
[2022-03-26] MEDS: LACTATED RINGERS SOLUTION 1,000 ML/1,000 ML INFUS.BAG IV SCH (15:49)
[2022-03-26] MEDS: ACETAMINOPHEN 325 MG TABLET (FP) PO PRN (17:50)
[2022-03-26] MEDS ORDERED: INSULIN (NOVOLOG) ASPART 100 UNITS/ML 10ML VIAL ONE (21:34)
[2022-03-27] MEDS: ACETAMINOPHEN 325 MG TABLET (FP) PO PRN (03:29)
[2022-03-27] MEDS: DOCUSATE SODIUM 100 MG CAPSULE (FP) PO SCH ×2 (05:25→13:27)
[2022-03-27] MEDS: HEPARIN NA (PORCINE) 5,000 UNITS/ML 1ML VIAL SQ SCH ×3 (06:07→21:08)
[2022-03-27] MEDS: INSULIN (LEVEMIR) 100 UNITS/ML UNITS SQ SCH ×2 (06:07→21:13)
[2022-03-27] MEDS: INSULIN (NOVOLOG) ASPART 100 UNITS/ML 10ML VIAL SQ SCH (06:08)
[2022-03-27] MEDS: INSULIN SLIDING SCALE (NOVOLOG) 1 VIAL SQ SCH ×4 (06:08→21:12)
[2022-03-27 08:49] LABS: HEMATOCRIT 34.9 % (35.4-49); HEMOGLOBIN 11.5 GM/dL (11.7-16.9); MCH 29.2 pg (25.7-33.7); MCHC 32.8 g/dl (32.0-35.9); MEAN CELL VOLUME 88.8 fl (80-96); MEAN PLT VOLUME 9.9 fl (7.5-11.1); PLATELET COUNT 233 10^3/uL (134-434); RBC 3.93 M/mm3 (4.00-5.60); RDW 15.6 % (11.9-15.9); WHITE BLOOD COUNT 14.6 K/mm3 (4.0-10.0)
[2022-03-27 09:21] LABS: BLOOD UREA NITROGEN 20.6 mg/dL (7-18); CALCIUM 8.1 mg/dL (8.5-10.1); MAGNESIUM 1.8 mg/dL (1.8-2.4)
[2022-03-27 09:25] LABS: CREATININE 1.6 mg/dL (0.55-1.3)
[2022-03-27 09:27] LABS: TOT PROT 5.5 g/dl (6.4-8.2)
[2022-03-27] MEDS: PANTOPRAZOLE 40 MG TABLET PO SCH (09:49)
[2022-03-27] MEDS: TORSEMIDE 20 MG TABLET (FP) PO SCH (09:50)
[2022-03-27] MEDS: SPIRONOLACTONE 25 MG TABLET PO SCH (09:50)
[2022-03-27] MEDS: POLYETHYLENE GLYCOL (HEALTHYLAX) 3350 17 GM PACKET PO SCH ×3 (09:51→21:08)
[2022-03-27] MEDS: VALSARTAN 40 MG TABLET PO SCH (09:51)
[2022-03-27] MEDS: LACTATED RINGERS SOLUTION 1,000 ML/1,000 ML INFUS.BAG IV SCH ×2 (10:15→17:21)
[2022-03-27 10:20] LABS: ANISOCYTOSIS 0; MACROCYTOSIS 0
[2022-03-27] MEDS ORDERED: oxyCODONE HCL 5 MG TABLET PO PRN ×4 (11:12→14:26)
[2022-03-27] MEDS ORDERED: morphine SULFATE 4 MG/ML VIAL IVPUSH PRN (14:23)
[2022-03-27] MEDS: ACETAMINOPHEN 1000 MG/100 ML BAG IVPB SCH ×2 (17:22→21:04)
[2022-03-28] MEDS: ACETAMINOPHEN 1000 MG/100 ML BAG IVPB SCH ×4 (02:49→21:22)
[2022-03-28] MEDS: HEPARIN NA (PORCINE) 5,000 UNITS/ML 1ML VIAL SQ SCH ×3 (06:21→21:23)
[2022-03-28] MEDS: INSULIN SLIDING SCALE (NOVOLOG) 1 VIAL SQ SCH ×4 (06:28→21:35)
[2022-03-28] MEDS: INSULIN (LEVEMIR) 100 UNITS/ML UNITS SQ SCH ×2 (06:29→21:23)
[2022-03-28 09:29] LABS: HEMATOCRIT 34.2 % (35.4-49); HEMOGLOBIN 10.9 GM/dL (11.7-16.9); MCHC 31.9 g/dl (32.0-35.9); MEAN CELL VOLUME 90.8 fl (80-96); PLATELET COUNT 273 10^3/uL (134-434); RBC 3.77 M/mm3 (4.00-5.60); RDW 15.7 % (11.9-15.9); WHITE BLOOD COUNT 15.7 K/mm3 (4.0-10.0)
[2022-03-28] MEDS: VALSARTAN 40 MG TABLET PO SCH (09:47)
[2022-03-28] MEDS: PANTOPRAZOLE 40 MG TABLET PO SCH (09:47)
[2022-03-28] MEDS: POLYETHYLENE GLYCOL (HEALTHYLAX) 3350 17 GM PACKET PO SCH ×2 (09:52→21:22)
[2022-03-28 10:13] LABS: ANISOCYTOSIS 1+; MACROCYTOSIS 0
[2022-03-28 11:17] VITALS: RESP 20
[2022-03-28] MEDS ORDERED: INSULIN (LEVEMIR) 100 UNITS/ML UNITS SQ ONE (12:07)
[2022-03-28 14:33] LABS: CALCIUM 8.1 mg/dL (8.5-10.1)
[2022-03-28 14:34] LABS: ALBUMIN 2.1 g/dl (3.4-5.0); BLOOD UREA NITROGEN 19.6 mg/dL (7-18); MAGNESIUM 1.8 mg/dL (1.8-2.4)
[2022-03-28 14:37] LABS: CREATININE 1.7 mg/dL (0.55-1.3)
[2022-03-28 14:38] LABS: TOT PROT 5.7 g/dl (6.4-8.2)
[2022-03-29] MEDS: ACETAMINOPHEN 1000 MG/100 ML BAG IVPB SCH (02:11)
[2022-03-29] MEDS: HEPARIN NA (PORCINE) 5,000 UNITS/ML 1ML VIAL SQ SCH (06:24)
[2022-03-29] MEDS: INSULIN SLIDING SCALE (NOVOLOG) 1 VIAL SQ SCH ×2 (06:28→11:20)
[2022-03-29] MEDS: INSULIN (LEVEMIR) 100 UNITS/ML UNITS SQ SCH (06:30)
[2022-03-29] MEDS ORDERED: ACETAMINOPHEN 500 MG TABLET (FP) PO PRN (08:18)
[2022-03-29] MEDS: PANTOPRAZOLE 40 MG TABLET PO SCH (09:06)
[2022-03-29] MEDS: POLYETHYLENE GLYCOL (HEALTHYLAX) 3350 17 GM PACKET PO SCH (09:06)
[2022-03-29] MEDS: VALSARTAN 40 MG TABLET PO SCH (09:06)
[2022-03-29 09:55] LABS: HEMATOCRIT 31.7 % (35.4-49); HEMOGLOBIN 10.1 GM/dL (11.7-16.9); MCH 29.3 pg (25.7-33.7); MCHC 31.9 g/dl (32.0-35.9); MEAN CELL VOLUME 91.8 fl (80-96); PLATELET COUNT 308 10^3/uL (134-434); RBC 3.45 M/mm3 (4.00-5.60); RDW 15.7 % (11.9-15.9); WHITE BLOOD COUNT 13.8 K/mm3 (4.0-10.0)
[2022-03-29 10:05] VITALS: BP 138/55; PULSE 84; TEMP 99.5
[2022-03-29 11:08] LABS: ALBUMIN 2.2 g/dl (3.4-5.0); BLOOD UREA NITROGEN 18.6 mg/dL (7-18); CALCIUM 7.9 mg/dL (8.5-10.1); MAGNESIUM 1.9 mg/dL (1.8-2.4)
[2022-03-29 11:10] LABS: ANISOCYTOSIS 1+; CREATININE 1.6 mg/dL (0.55-1.3); MACROCYTOSIS 0
[2022-03-29 11:12] LABS: BILIRUBIN,TOTAL 0.9 mg/dL (0.2-1); TOT PROT 5.8 g/dl (6.4-8.2)
[2022-03-29] MEDS: TORSEMIDE 20 MG TABLET (FP) PO SCH (11:16)
[2022-03-29] MEDS: INSULIN (NOVOLOG) ASPART 100 UNITS/ML 10ML VIAL SQ SCH (11:20)
[2022-03-29 15:16] VITALS: BMI 32.5
== END 2022-03-29 12:57 | disposition home health service (06) | DRG 637 ==
LOC: JER 20:06 → JERBED 03-20 02:35 → JICU 03-20 04:22 → J8W 03-22 21:42
PROVIDERS: ADMIT Internal Medicine Pulmonary Disease; ATTEND Nurse Practitioner Acute Care
DX: E11.00 Type 2 diabetes mellitus with hyperosmolarity without nonketotic hyperglycemic-hyperosmolar coma (NKHHC) (principal); K85.30 Drug induced acute pancreatitis without necrosis or infection; N17.9 Acute kidney failure, unspecified; I13.0 Hypertensive heart and chronic kidney disease with heart failure and stage 1 through stage 4 chronic kidney disease, or unspecified chronic kidney disease; I50.22 Chronic systolic (congestive) heart failure; E87.5 Hyperkalemia; E86.0 Dehydration; E78.1 Pure hyperglyceridemia; T38.3X5A Adverse effect of insulin and oral hypoglycemic [antidiabetic] drugs, initial encounter; I48.0 Paroxysmal atrial fibrillation; R16.0 Hepatomegaly, not elsewhere classified; E66.9 Obesity, unspecified; I25.10 Atherosclerotic heart disease of native coronary artery without angina pectoris; E11.22 Type 2 diabetes mellitus with diabetic chronic kidney disease; N18.9 Chronic kidney disease, unspecified; Z95.810 Presence of automatic (implantable) cardiac defibrillator; Z68.32 Body mass index [BMI] 32.0-32.9, adult
CPT/HCPCS: 0241U-QW; 36415; 36600; 71046-TC-FY; 74176-TC; 74178-TC; 76705-TC; 80048; 80053; 80061; 81003; 82010; 82105; 82150; 82787; 82803; 82962; 83036; 83605; 83690; 83735; 83880; 83930; 84100; 84478; 84484; 85025; 85027; 85610; 85730; 86140; 86803; 86850; 86900; 86901; 87040; 87086; 87340; 93005; 93010; 94640; 97116-GP; 99285-25; J1644; Q9967

== ENCOUNTER 2022-04-01 21:52 | Observation (INO) | payer OTHER ==
[2022-04-01 22:08] VITALS: BMI 30.8
[2022-04-01 23:57] LABS: VENOUS BASE EXCESS -1.5 mmol/L (-2-2); VENOUS O2 SATURATION 40.2 % (70-80); VENOUS PCO2 43.2 mmHg (38-52); VENOUS PH 7.362 (7.310-7.410)
[2022-04-01 23:59] LABS: BASO % 0.8 % (0-2.0); EOS % 1.2 % (0-4.5); HEMATOCRIT 32.8 % (35.4-49); HEMOGLOBIN 10.8 GM/dL (11.7-16.9); LYMPH % 12.1 % (8-40); MCH 30.5 pg (25.7-33.7); MCHC 32.9 g/dl (32.0-35.9); MEAN CELL VOLUME 92.9 fl (80-96); MEAN PLT VOLUME 8.2 fl (7.5-11.1); MONO % 6.3 % (3.8-10.2); NEUT % 79.6 % (42.8-82.8); PLATELET COUNT 497 10^3/uL (134-434); RBC 3.53 M/mm3 (4.00-5.60); RDW 16.9 % (11.9-15.9); WHITE BLOOD COUNT 10.9 K/mm3 (4.0-10.0)
[2022-04-02] MEDS ORDERED: ACETAMINOPHEN 325 MG TABLET (FP) PO ONE (00:20)
[2022-04-02] MEDS ORDERED: ACETAMINOPHEN 325 MG TABLET (FP) ONE (00:27)
[2022-04-02 03:03] LABS: CHLORIDE 91 mmol/L (98-107); SODIUM 128 mmol/L (136-145)
[2022-04-02 03:06] LABS: CALCIUM 8.6 mg/dL (8.5-10.1)
[2022-04-02 03:07] LABS: ANION GAP 11 MMOL/L (8-16); BLOOD UREA NITROGEN 22.5 mg/dL (7-18); CO2 26 mmol/L (21-32); MAGNESIUM 2.1 mg/dL (1.8-2.4)
[2022-04-02 03:10] LABS: CREATININE 2.7 mg/dL (0.55-1.3); SGOT/AST 19 U/L (15-37); SGPT/ALT 28 U/L (13-61)
[2022-04-02 03:11] LABS: BILIRUBIN,TOTAL 0.4 mg/dL (0.2-1)
[2022-04-02 03:12] LABS: ALK PHOS 118 U/L (45-117)
[2022-04-02] MEDS ORDERED: SODIUM CHLORIDE 0.9% 500 ML INFUS.BAG IV ONE ×2 (03:27→15:31)
[2022-04-02 04:57] LABS: ALBUMIN 2.7 g/dl (3.4-5.0); GLUCOSE,RANDOM 629 mg/dL (74-106)
[2022-04-02 07:43] LABS: BASO % 1.1 % (0-2.0); EOS % 1.5 % (0-4.5); HEMATOCRIT 30.7 % (35.4-49); HEMOGLOBIN 10.2 GM/dL (11.7-16.9); LYMPH % 15.7 % (8-40); MCH 30.9 pg (25.7-33.7); MCHC 33.4 g/dl (32.0-35.9); MEAN CELL VOLUME 92.5 fl (80-96); MEAN PLT VOLUME 8.1 fl (7.5-11.1); MONO % 6.2 % (3.8-10.2); NEUT % 75.5 % (42.8-82.8); PLATELET COUNT 460 10^3/uL (134-434); RBC 3.31 M/mm3 (4.00-5.60); RDW 16.2 % (11.9-15.9); WHITE BLOOD COUNT 7.8 K/mm3 (4.0-10.0)
[2022-04-02 07:56] LABS: CHLORIDE 94 mmol/L (98-107); SODIUM 131 mmol/L (136-145)
[2022-04-02 07:58] LABS: ALBUMIN 2.5 g/dl (3.4-5.0); ANION GAP 10 MMOL/L (8-16); BLOOD UREA NITROGEN 20.1 mg/dL (7-18); CALCIUM 8.5 mg/dL (8.5-10.1); CO2 27 mmol/L (21-32)
[2022-04-02 08:01] LABS: CREATININE 2.2 mg/dL (0.55-1.3); PHOSPHOROUS 3.5 mg/dL (2.5-4.9); SGOT/AST 9 U/L (15-37); SGPT/ALT 23 U/L (13-61)
[2022-04-02 08:03] LABS: BILIRUBIN,TOTAL 0.4 mg/dL (0.2-1); IRON SERUM 61 ug/dL (50-175); TOT PROT 6.6 g/dl (6.4-8.2); TOTAL IRON BINDING CAPACITY 223 ug/dL (250-450)
[2022-04-02 08:04] LABS: ALK PHOS 106 U/L (45-117)
[2022-04-02 08:25] LABS: GLUCOSE,RANDOM 415 mg/dL (74-106)
[2022-04-02] MEDS: HEPARIN NA (PORCINE) 5,000 UNITS/ML 1ML VIAL SQ SCH ×3 (08:49→21:54)
[2022-04-02] MEDS: INSULIN SLIDING SCALE (NOVOLOG) 1 VIAL SQ SCH ×4 (08:50→21:56)
[2022-04-02] MEDS ORDERED: HEPARIN NA (PORCINE) 5,000 UNITS/ML 1ML VIAL ONE (08:52)
[2022-04-02] MEDS ORDERED: LIDOCAINE HCL 5% TOP OINTMENT 50 GM TUBE TP ONE ×2 (13:34→13:35)
[2022-04-02] MEDS ORDERED: INSULIN (LEVEMIR) 100 UNITS/ML UNITS SQ SCH (22:00)
[2022-04-03] MEDS: HEPARIN NA (PORCINE) 5,000 UNITS/ML 1ML VIAL SQ SCH ×3 (06:09→22:08)
[2022-04-03] MEDS: INSULIN SLIDING SCALE (NOVOLOG) 1 VIAL SQ SCH ×4 (06:11→22:12)
[2022-04-03] MEDS: INSULIN (NOVOLOG) ASPART 100 UNITS/ML 10ML VIAL SQ SCH ×3 (06:12→18:46)
[2022-04-03] MEDS ORDERED: INSULIN (LEVEMIR) 100 UNITS/ML UNITS SQ SCH (07:00)
[2022-04-03] MEDS: SODIUM CHLORIDE 0.45% 1,000 ML IV SCH (14:32)
[2022-04-03 17:31] LABS: HEMATOCRIT 29.3 % (35.4-49); HEMOGLOBIN 9.8 GM/dL (11.7-16.9); MCH 30.7 pg (25.7-33.7); MCHC 33.6 g/dl (32.0-35.9); MEAN CELL VOLUME 91.4 fl (80-96); MEAN PLT VOLUME 7.8 fl (7.5-11.1); PLATELET COUNT 453 10^3/uL (134-434); RBC 3.21 M/mm3 (4.00-5.60); RDW 16.7 % (11.9-15.9); WHITE BLOOD COUNT 7.4 K/mm3 (4.0-10.0)
[2022-04-03 18:05] LABS: CALCIUM 8.5 mg/dL (8.5-10.1)
[2022-04-03 18:06] LABS: ALBUMIN 2.1 g/dl (3.4-5.0); BLOOD UREA NITROGEN 13.9 mg/dL (7-18)
[2022-04-03 18:09] LABS: CREATININE 1.9 mg/dL (0.55-1.3)
[2022-04-03 18:11] LABS: BILIRUBIN,TOTAL 0.4 mg/dL (0.2-1); TOT PROT 5.8 g/dl (6.4-8.2)
[2022-04-03 19:28] LABS: EPI CELLS 11 /uL (0-25.1); HYALINE CASTS 3 /uL (0-3.1); PH,URINE 5.5 (5.0-8.0); URINE APPEARANCE CLEAR; URINE BACTERIA 7 /uL (0-1359); URINE BILIRUBIN NEGATIVE (NEGATIVE); URINE COLOR YELLOW; URINE GLUCOSE (UA) 3+ (NEGATIVE); URINE KETONE TRACE (NEGATIVE); URINE LEUK ESTERASE NEGATIVE (NEGATIVE); URINE NITRITE NEGATIVE (NEGATIVE); URINE PROTEIN 1+ (NEGATIVE); URINE RBC 5 /uL (0-23.9); URINE WBC 12 /uL (0-25.8)
[2022-04-03] MEDS: INSULIN (LEVEMIR) 100 UNITS/ML UNITS SQ SCH (22:24)
[2022-04-04] MEDS: HEPARIN NA (PORCINE) 5,000 UNITS/ML 1ML VIAL SQ SCH ×2 (06:12→16:13)
[2022-04-04] MEDS: INSULIN SLIDING SCALE (NOVOLOG) 1 VIAL SQ SCH ×2 (06:17→12:42)
[2022-04-04] MEDS: INSULIN (NOVOLOG) ASPART 100 UNITS/ML 10ML VIAL SQ SCH ×2 (06:25→12:42)
[2022-04-04 06:35] VITALS: RESP 18
[2022-04-04] MEDS: INSULIN (LEVEMIR) 100 UNITS/ML UNITS SQ SCH (06:37)
[2022-04-04] MEDS: SODIUM CHLORIDE 0.45% 1,000 ML IV SCH (06:57)
[2022-04-04 10:36] LABS: HEMATOCRIT 34.2 % (35.4-49); MCH 29.9 pg (25.7-33.7); MCHC 32.1 g/dl (32.0-35.9); MEAN CELL VOLUME 93.1 fl (80-96); MEAN PLT VOLUME 9.2 fl (7.5-11.1); PLATELET COUNT 438 10^3/uL (134-434); RBC 3.67 M/mm3 (4.00-5.60); RDW 16.7 % (11.9-15.9); WHITE BLOOD COUNT 11.3 K/mm3 (4.0-10.0)
[2022-04-04 10:49] LABS: ALBUMIN 2.4 g/dl (3.4-5.0); CALCIUM 8.9 mg/dL (8.5-10.1)
[2022-04-04 10:51] LABS: BLOOD UREA NITROGEN 12.5 mg/dL (7-18); MAGNESIUM 1.9 mg/dL (1.8-2.4)
[2022-04-04 10:52] LABS: CREATININE 1.7 mg/dL (0.55-1.3)
[2022-04-04 10:53] LABS: BILIRUBIN,TOTAL 0.4 mg/dL (0.2-1)
[2022-04-04 10:54] LABS: TOT PROT 6.5 g/dl (6.4-8.2)
[2022-04-04 14:26] VITALS: BP 140/78; PULSE 89; TEMP 98.4
== END 2022-04-04 17:49 | disposition home or self-care (01) ==
LOC: JER 21:52 → JERBED 04-02 06:03 → UNDOADMOB 04-02 06:03 → INTOOBSV 04-02 06:03 → JERBED 04-02 10:34 → J5S 04-02 10:34
PROVIDERS: ADMIT Internal Medicine; ATTEND Internal Medicine
PROC: 3E0337Z Introduction of Electrolytic and Water Balance Substance into Peripheral Vein, Percutaneous Approach (ICD-10-PCS; principal; 2022-04-02)
DX: N17.9 Acute kidney failure, unspecified (principal); E11.65 Type 2 diabetes mellitus with hyperglycemia; I11.0 Hypertensive heart disease with heart failure; I50.9 Heart failure, unspecified; I48.0 Paroxysmal atrial fibrillation; I25.2 Old myocardial infarction; Z87.891 Personal history of nicotine dependence
CPT/HCPCS: 0241U-QW; 36415; 71045-TC-FY; 76775-TC; 80053; 81003; 82010; 82550; 82553; 82570; 82728; 82803; 82962; 83540; 83550; 83690; 83735; 83930; 84100; 84156; 84300; 84466; 84484; 85025; 85027; 85045; 86850; 86900; 86901; 93005; 93010; 93970-TC; 96360; 96372; 97116-GP; 97161-GP; 99285-25; G0378; J1644

== ENCOUNTER 2022-10-24 13:10 | Emergency (ER) | payer OTHER ==
[2022-10-24 13:29] VITALS: BP 126/78; RESP 18; TEMP 98.4; BMI 27.3
[2022-10-24] MEDS ORDERED: SODIUM CHLORIDE 500 ML IV STA (14:46)
[2022-10-24 15:23] LABS: BASO % 0.9 % (0-2.0); HEMATOCRIT 49.6 % (35.4-49); HEMOGLOBIN 16.4 GM/dL (11.7-16.9); MCH 26.8 pg (25.7-33.7); MEAN CELL VOLUME 81.4 fl (80-96); MEAN PLT VOLUME 9.1 fl (7.5-11.1); MONO % 5.8 % (3.8-10.2); NEUT % 64.3 % (42.8-82.8); PLATELET COUNT 262 10^3/uL (134-434); RBC 6.09 M/mm3 (4.00-5.60); RDW 16.2 % (11.9-15.9); WHITE BLOOD COUNT 5.7 K/mm3 (4.0-10.0)
[2022-10-24 15:24] LABS: VENOUS BASE EXCESS -2.9 mmol/L (-2-2); VENOUS O2 SATURATION 22.1 % (70-80); VENOUS PCO2 57.3 mmHg (38-52); VENOUS PH 7.264 (7.310-7.410)
[2022-10-24 15:44] LABS: POTASSIUM 4.9 mmol/L (3.5-5.1)
[2022-10-24 15:46] LABS: ALBUMIN 3.7 g/dl (3.4-5.0); BLOOD UREA NITROGEN 23.8 mg/dL (7-18); CALCIUM 9.7 mg/dL (8.5-10.1); MAGNESIUM 2.2 mg/dL (1.8-2.4)
[2022-10-24 15:50] LABS: CREATININE 1.5 mg/dL (0.55-1.3)
[2022-10-24 15:51] LABS: BILIRUBIN,TOTAL 0.8 mg/dL (0.2-1); TOT PROT 7.1 g/dl (6.4-8.2)
[2022-10-24] MEDS ORDERED: INSULIN REGULAR HUMAN 100 UNITS/ML *VIAL SQ ONE (16:18)
[2022-10-24 16:55] LABS: VENOUS BASE EXCESS -3.1 mmol/L (-2-2); VENOUS O2 SATURATION 29.2 % (70-80); VENOUS PH 7.309 (7.310-7.410)
[2022-10-24 17:14] LABS: CALCIUM 8.6 mg/dL (8.5-10.1); POTASSIUM 4.6 mmol/L (3.5-5.1)
[2022-10-24 17:16] LABS: BLOOD UREA NITROGEN 23.2 mg/dL (7-18)
[2022-10-24 17:19] LABS: CREATININE 1.2 mg/dL (0.55-1.3)
[2022-10-24 18:16] VITALS: PULSE 70
== END 2022-10-24 18:16 | disposition home or self-care (01) ==
LOC: JER 13:10
PROC: 3E0337Z Introduction of Electrolytic and Water Balance Substance into Peripheral Vein, Percutaneous Approach (ICD-10-PCS; principal; 2022-10-24)
PROC: 3E013VG Introduction of Insulin into Subcutaneous Tissue, Percutaneous Approach (ICD-10-PCS; 2022-10-24)
DX: E11.65 Type 2 diabetes mellitus with hyperglycemia (principal)
CPT/HCPCS: 36415; 80048; 80053; 82010; 82803; 82962; 83735; 85025; 99284-25

== ENCOUNTER 2023-01-17 06:14 | Observation (INO) | payer OTHER ==
[2023-01-17] MEDS ORDERED: FUROSEMIDE 40 MG/4 ML INJECTABLE VIAL IVPUSH ONE (06:40)
[2023-01-17 06:41] VITALS: BMI 30.7
[2023-01-17] MEDS ORDERED: FUROSEMIDE 40 MG/4 ML INJECTABLE VIAL ONE (06:42)
[2023-01-17 06:52] LABS: BASO % 1.8 % (0-2.0); EOS % 3.3 % (0-4.5); HEMATOCRIT 48.9 % (35.4-49); HEMOGLOBIN 15.8 GM/dL (11.7-16.9); LYMPH % 29.5 % (8-40); MCH 29.6 pg (25.7-33.7); MCHC 32.3 g/dl (32.0-35.9); MEAN CELL VOLUME 91.7 fl (80-96); MONO % 4.6 % (3.8-10.2); NEUT % 60.8 % (42.8-82.8); PLATELET COUNT 252 10^3/uL (134-434); RBC 5.34 M/mm3 (4.00-5.60); RDW 14.2 % (11.9-15.9); VENOUS O2 SATURATION 86.5 % (70-80); VENOUS PCO2 35.9 mmHg (38-52); VENOUS PH 7.406 (7.310-7.410); WHITE BLOOD COUNT 7.5 K/mm3 (4.0-10.0)
[2023-01-17 07:08] LABS: CHLORIDE 110 mmol/L (98-107); SODIUM 137 mmol/L (136-145)
[2023-01-17 07:10] LABS: ALBUMIN 3.4 g/dl (3.4-5.0); ANION GAP 4 mmol/L (4-13); BLOOD UREA NITROGEN 20.2 mg/dL (7-18); CALCIUM 8.4 mg/dL (8.5-10.1); CO2 23 mmol/L (21-32); GLUCOSE,RANDOM 162 mg/dL (74-106); MAGNESIUM 1.8 mg/dL (1.8-2.4)
[2023-01-17 07:14] LABS: CREATININE 1.3 mg/dL (0.55-1.3); SGOT/AST 14 U/L (15-37); SGPT/ALT 21 U/L (13-61)
[2023-01-17 07:15] LABS: BILIRUBIN,TOTAL 0.8 mg/dL (0.2-1); TOT PROT 6.5 g/dl (6.4-8.2)
[2023-01-17 07:16] LABS: ALK PHOS 108 U/L (45-117)
[2023-01-17 07:18] LABS: N-TERMINAL BNP 5501.2 pg/ml (5-125)
[2023-01-17 07:19] LABS: INR 1.09 (0.83-1.09); PROTHROMBIN TIME (PATIENT) 12.6 SEC (9.7-13.0)
[2023-01-17] MEDS ORDERED: ACETAMINOPHEN 1000 MG/100 ML BAG IVPB PRN (10:50)
[2023-01-17] MEDS ORDERED: VALSARTAN 40 MG TABLET PO SCH (11:00)
[2023-01-17] MEDS ORDERED: VALSARTAN 80 MG TABLET ONE (11:02)
[2023-01-17] MEDS ORDERED: SPIRONOLACTONE 25 MG TABLET ONE (11:03)
[2023-01-17] MEDS: SPIRONOLACTONE 25 MG TABLET PO SCH (11:05)
[2023-01-17] MEDS ORDERED: INSULIN (NOVOLOG) ASPART 100 UNITS/ML 10ML VIAL ONE ×2 (11:10→17:21)
[2023-01-17] MEDS: INSULIN SLIDING SCALE (NOVOLOG) 1 VIAL SQ SCH ×3 (11:18→22:31)
[2023-01-17] MEDS ORDERED: HEPARIN NA (PORCINE) 5,000 UNITS/ML 1ML VIAL ONE (14:32)
[2023-01-17] MEDS: HEPARIN NA (PORCINE) 5,000 UNITS/ML 1ML VIAL SQ SCH ×2 (14:38→22:25)
[2023-01-17 18:30] VITALS: RESP 20
[2023-01-17 18:40] LABS: EPI CELLS 1 /uL (0-25.1); HYALINE CASTS 0 /uL (0-3.1); URINE APPEARANCE CLEAR; URINE BACTERIA 2 /uL (0-1359); URINE BILIRUBIN NEGATIVE (NEGATIVE); URINE COLOR YELLOW; URINE GLUCOSE (UA) NEGATIVE (NEGATIVE); URINE KETONE NEGATIVE (NEGATIVE); URINE LEUK ESTERASE NEGATIVE (NEGATIVE); URINE NITRITE NEGATIVE (NEGATIVE); URINE PROTEIN 2+ (NEGATIVE); URINE RBC 8 /uL (0-23.9); URINE WBC 2 /uL (0-25.8)
[2023-01-17] MEDS ORDERED: VALSARTAN 40 MG TABLET PO ONE (21:42)
[2023-01-18] MEDS ORDERED: VALSARTAN 40 MG TABLET PO ONE (01:00)
[2023-01-18] MEDS ORDERED: VALSARTAN 160 MG TABLET PO SCH ×2 (01:13→22:00)
[2023-01-18] MEDS: HEPARIN NA (PORCINE) 5,000 UNITS/ML 1ML VIAL SQ SCH (06:11)
[2023-01-18] MEDS: INSULIN SLIDING SCALE (NOVOLOG) 1 VIAL SQ SCH ×2 (06:14→11:42)
[2023-01-18 07:34] LABS: BASO % 1.7 % (0-2.0); EOS % 3.5 % (0-4.5); HEMOGLOBIN 15.3 GM/dL (11.7-16.9); LYMPH % 38.2 % (8-40); MCHC 32.5 g/dl (32.0-35.9); MEAN CELL VOLUME 92.2 fl (80-96); MEAN PLT VOLUME 9.2 fl (7.5-11.1); MONO % 6.5 % (3.8-10.2); NEUT % 50.1 % (42.8-82.8); PLATELET COUNT 241 10^3/uL (134-434); RDW 14.4 % (11.9-15.9); WHITE BLOOD COUNT 6.2 K/mm3 (4.0-10.0)
[2023-01-18 07:53] LABS: POTASSIUM 4.4 mmol/L (3.5-5.1)
[2023-01-18 07:57] LABS: ALBUMIN 3.2 g/dl (3.4-5.0); CALCIUM 9.1 mg/dL (8.5-10.1)
[2023-01-18 07:58] LABS: BLOOD UREA NITROGEN 23.1 mg/dL (7-18)
[2023-01-18 08:00] LABS: CREATININE 1.6 mg/dL (0.55-1.3); PHOSPHOROUS 4.4 mg/dL (2.5-4.9)
[2023-01-18 08:02] LABS: BILIRUBIN,TOTAL 1.4 mg/dL (0.2-1)
[2023-01-18 08:04] LABS: CHOLESTEROL 155 mg/dL (50-200); TOT PROT 6.1 g/dl (6.4-8.2)
[2023-01-18 08:05] LABS: LDL CHOLESTEROL (ONLY SJRH) 104 mg/dL (5-100)
[2023-01-18 08:07] LABS: HDL CHOLESTEROL 43 mg/dL (40-60)
[2023-01-18] MEDS ORDERED: ASPIRIN 81 MG CHEWABLE TABLETS PO SCH (10:00)
[2023-01-18] MEDS ORDERED: FUROSEMIDE 40 MG/4 ML INJECTABLE VIAL IVPUSH SCH (10:00)
[2023-01-18] MEDS ORDERED: ENOXAPARIN NA (PORCINE) 80 MG/0.8 ML DISP.SYRIN SQ SCH (10:00)
[2023-01-18] MEDS: SPIRONOLACTONE 25 MG TABLET PO SCH (10:19)
[2023-01-18 15:51] VITALS: BP 138/99; PULSE 85; TEMP 97.7
== END 2023-01-18 16:50 | disposition home or self-care (01) ==
LOC: JER 06:14 → JERBED 09:50 → J4S 18:49
PROVIDERS: ADMIT Internal Medicine; ATTEND Internal Medicine
PROC: 3E033NZ Introduction of Analgesics, Hypnotics, Sedatives into Peripheral Vein, Percutaneous Approach (ICD-10-PCS; principal; 2023-01-17)
PROC: 3E023GC Introduction of Other Therapeutic Substance into Muscle, Percutaneous Approach (ICD-10-PCS; 2023-01-17)
PROC: 3E033GC Introduction of Other Therapeutic Substance into Peripheral Vein, Percutaneous Approach (ICD-10-PCS; 2023-01-17)
PROC: 3E013VG Introduction of Insulin into Subcutaneous Tissue, Percutaneous Approach (ICD-10-PCS; 2023-01-17)
DX: I50.23 Acute on chronic systolic (congestive) heart failure (principal); E11.22 Type 2 diabetes mellitus with diabetic chronic kidney disease; I12.9 Hypertensive chronic kidney disease with stage 1 through stage 4 chronic kidney disease, or unspecified chronic kidney disease; N18.9 Chronic kidney disease, unspecified; I25.10 Atherosclerotic heart disease of native coronary artery without angina pectoris; I25.2 Old myocardial infarction; I48.0 Paroxysmal atrial fibrillation; Z87.891 Personal history of nicotine dependence
CPT/HCPCS: 0241U-QW; 36415; 71045-TC-FY; 80053; 80061; 81003; 82550; 82803; 82962; 83036; 83735; 83880; 84100; 84443; 84484; 85025; 85610; 85730; 87086; 93005; 93010; 96372; 96374; 96375; 96376; 99285-25; G0378; J1644